=== PATIENT | male | born 2000 | race Two or more races ===

== ENCOUNTER 2020-08-27 11:45 | Outpatient (CLI) | payer OTHER ==
[~2020-08-27 11:45] MED LIST: ZYRTEC10 M3
== END 2020-08-27 13:00 | disposition home or self-care (01) ==
LOC: SONOGRAMA 11:45
PROVIDERS: ATTEND Pathology Anatomic Pathology & Clinical Pathology
DX: E04.1 Nontoxic single thyroid nodule (principal)